=== PATIENT | female | born 1945 | race African-American/Black ===

== ENCOUNTER 2016-10-28 14:41 | Inpatient (IN) | payer MEDICARE ==
[~2016-10-28] VITALS: Ht 170.2 cm; Wt 103.4 kg
[2016-10-28] MEDS ORDERED: SODIUM CHLORIDE 0.9% 500 ML IV ONE ×2 (15:39→19:00)
[2016-10-28 19:04] LABS: HEMATOCRIT. 37.9 % (36.0-48.0); HEMOGLOBIN. 12.4 g/dL (12.0-16.0); MEAN CORPUSCULAR HEMOGLOBIN 26.1 pg (28.0-32.0); MEAN PLATELET VOLUME 8.1 fl (7.4-10.4); PLATELET 198 x1000/uL (130-400); RED BLOOD CELL COUNT 4.74 mill/uL (4.2-5.4); RED CELL DISTRIBUTION WIDTH 13.6 % (11.6-14.6)
[2016-10-28 19:46] LABS: CHLORIDE 93 mEq/L (98-107)
[2016-10-28 19:53] LABS: CARBON DIOXIDE 23 mEq/L (21-32)
[2016-10-28 19:57] LABS: TROPONIN I 0.16 ng/mL (0.00-0.04)
[2016-10-28] MEDS ORDERED: MORPHINE SULFATE 2 MG/ML CPJ (NOT FOR IM USE) IV ONE (20:15)
[2016-10-28] MEDS ORDERED: ONDANSETRON HCL 4MG/2ML VIAL IV ONE (20:15)
[2016-10-28 20:43] LABS: PLATELET ESTIMATE NORMAL
[2016-10-28] MEDS ORDERED: SODIUM CHLORIDE 0.9% 1,000 ML IV ONE (21:45)
[2016-10-28] MEDS ORDERED: KETOROLAC 30MG/ML VIAL IV ONE (22:00)
[2016-10-29] MEDS ORDERED: PANTOPRAZOLE SODIUM 40 MG/VIAL IV ONE
[2016-10-29] MEDS ORDERED: MORPHINE SULFATE 4 MG/ML CPJ (NOT FOR IM USE) IV PRN
[2016-10-29 00:44] LABS: CREATINE KINASE MB FRACTION 1.7 ng/mL (0.5-3.6); TROPONIN I 0.15 ng/mL (0.00-0.04)
[2016-10-29] MEDS ORDERED: NOREPINEPHRINE 16 MG in DEXT 5% WATER 234 ML IV PRN (01:45)
[2016-10-29] MEDS ORDERED: SODIUM CHLORIDE 0.9% 1000ML BAG (SEPSIS BOLUS) IV ONE (02:00)
[2016-10-29] MEDS ORDERED: SODIUM CHL 0.45% + KCL 20MEQ/L 1,000 ML IV SCH (02:00)
[2016-10-29] MEDS ORDERED: HYDROCODONE/ACETAMINOPHEN 5/325MG TABLET PO PRN (03:45)
[2016-10-29] MEDS ORDERED: SODIUM CHLORIDE 0.9% 100 ML IV SCH (03:45)
[2016-10-29] MEDS ORDERED: SODIUM CHLORIDE 0.9% 1,000 ML IV SCH ×2 (03:54→04:15)
[2016-10-29] MEDS ORDERED: SODIUM BICARBONATE 8.4% 1 MEQ/ML 50ML SYR IV NR ×2 (08:15)
[2016-10-29] MEDS ORDERED: ENOXAPARIN 100MG/ML SYR SUBCUT ONE (08:15)
[2016-10-29 08:22] VITALS: BP 59/48
[2016-10-29] MEDS ORDERED: DOPAMINE 400MG PREMIX 250 ML IV ONE (08:27)
[2016-10-29] MEDS ORDERED: SODIUM BICARBONATE 100 MEQ in DEXTROSE 5% WATER 1,000 ML IV SCH (08:45)
[2016-10-29] MEDS ORDERED: ENOXAPARIN 40MG/0.4ML SYR SUBCUT SCH (09:00)
[2016-10-29] MEDS ORDERED: PANTOPRAZOLE SODIUM 40 MG/VIAL IV SCH (09:00)
[2016-10-29] MEDS ORDERED: ENOXAPARIN 100MG/ML SYR SUBCUT SCH (09:00)
[2016-10-29] MEDS ORDERED: ATROPINE SULFATE 0.1MG/ML 10ML DISP.SYRIN ONE (10:49)
[2016-10-29] MEDS ORDERED: SODIUM BICARBONATE 7.5% 0.9 MEQ/ML 50ML SYR IV ONE (10:49)
[2016-10-29] MEDS ORDERED: CALCIUM CHLORIDE 1GM/10ML SYR IV ONE (10:49)
[2016-10-29] MEDS ORDERED: EPINEPHRINE 0.1MG/ML (1:10,000) 10ML SYR ONE (10:49)
== END 2016-10-29 08:40 | disposition expired | DRG 208 ==
LOC: ER 14:41 → 5EST 21:01 → EDBEDREQ 21:10 → ENRESERV 21:53 → CVICU 10-29 02:37
PROVIDERS: ADMIT Internal Medicine Geriatric Medicine; ATTEND Internal Medicine Geriatric Medicine
PROC: 06HM33Z Insertion of Infusion Device into Right Femoral Vein, Percutaneous Approach (ICD-10-PCS; principal; 2016-10-28)
PROC: 5A1935Z Respiratory Ventilation, Less than 24 Consecutive Hours (ICD-10-PCS; 2016-10-28)
PROC: 5A12012 Performance of Cardiac Output, Single, Manual (ICD-10-PCS; 2016-10-28)
PROC: 0BH17EZ Insertion of Endotracheal Airway into Trachea, Via Natural or Artificial Opening (ICD-10-PCS; 2016-10-28)
PROC: B54BZZA Ultrasonography of Right Lower Extremity Veins, Guidance (ICD-10-PCS; 2016-10-28)
DX: J96.00 Acute respiratory failure, unspecified whether with hypoxia or hypercapnia (principal); I21.4 Non-ST elevation (NSTEMI) myocardial infarction; J69.0 Pneumonitis due to inhalation of food and vomit; G92 Toxic encephalopathy; N17.9 Acute kidney failure, unspecified; E44.0 Moderate protein-calorie malnutrition; E87.1 Hypo-osmolality and hyponatremia; I47.2 Ventricular tachycardia; N39.0 Urinary tract infection, site not specified; I49.9 Cardiac arrhythmia, unspecified; G90.8 Other disorders of autonomic nervous system; I46.9 Cardiac arrest, cause unspecified; K52.9 Noninfective gastroenteritis and colitis, unspecified; E66.01 Morbid (severe) obesity due to excess calories; I95.9 Hypotension, unspecified; I10 Essential (primary) hypertension; E87.8 Other disorders of electrolyte and fluid balance, not elsewhere classified; E86.0 Dehydration; R73.9 Hyperglycemia, unspecified; Z68.35 Body mass index [BMI] 35.0-35.9, adult
CPT/HCPCS: 31500; 36415; 36556; 70450; 71010; 80053; 82553; 82962; 84484; 85025; 93005; 96361; 96374; 96375; 99285; C9113; J0171; J0461; J1265; J1885; J2270; J2405; J3480; J3490; J7030; J7040; J7060; J7070